=== PATIENT | female | born 2005 | race Caucasian/White ===

== ENCOUNTER 2025-02-18 11:19 | Emergency (ER) | payer OTHER, SELFPAY ==
[2025-02-18] MEDS ORDERED: HYDROcodone/Acetaminophen 10/325 mg Tablet ONE (12:03)
== END 2025-02-18 12:12 | disposition home or self-care (01) ==
LOC: CSHERS 11:19
DX: K08.89 Other specified disorders of teeth and supporting structures (principal); K02.9 Dental caries, unspecified
CPT/HCPCS: 99282